=== PATIENT | male | born 1965 ===

== ENCOUNTER 2022-11-29 07:30 | Inpatient (IN) | payer OTHER ==
[2022-11-29] MEDS ORDERED: SEGLUROMET 2.51 EAC1 PO (09:29)
[2022-11-29] MEDS ORDERED: AVALIDE 300-121 EACH PO (09:30)
[2022-12-02] MEDS ORDERED: TRAMADOL HCL50 MG PO (16:21)
[2022-12-02] MEDS ORDERED: MIRALAX17 GM PO (16:21)
[2022-12-02] MEDS ORDERED: TYLENOL ARTHRI650 MG PO (16:21)
[2022-12-02] MEDS ORDERED: NEURONTIN300 MG PO (16:21)
[2022-12-02] MEDS ORDERED: KETO10TA2 PO (16:21)
== END 2022-12-02 19:51 | disposition home or self-care (01) | DRG 355 ==
LOC: SURH 12-01 07:00 → O/R 12-01 12:21 → SURH 12-01 19:52
PROVIDERS: ADMIT Surgery; ATTEND Surgery
PROC: 0KNL4ZZ Release Left Abdomen Muscle, Percutaneous Endoscopic Approach (ICD-10-PCS; 2022-12-01)
PROC: 0KNK4ZZ Release Right Abdomen Muscle, Percutaneous Endoscopic Approach (ICD-10-PCS; 2022-12-01)
PROC: 0WUF4JZ Supplement Abdominal Wall with Synthetic Substitute, Percutaneous Endoscopic Approach (ICD-10-PCS; principal; 2022-12-01 07:00)
DX: K43.2 Incisional hernia without obstruction or gangrene (principal); Z20.822 Contact with and (suspected) exposure to COVID-19